=== PATIENT | female | born 1955 | race Caucasian/White ===

== ENCOUNTER → 2023-12-31 09:47 | Outpatient (REF) | payer MEDICARE, SELFPAY | LOC: RAD 09:47 | PROVIDERS: ATTENDING PHYSICIAN Internal Medicine Cardiovascular Disease; FAMILY PHYSICIAN Internal Medicine; REFERRING PHYSICIAN Internal Medicine Cardiovascular Disease | DX: I48.0 Paroxysmal atrial fibrillation (principal) | CPT/HCPCS: 75572; Q9967 ==

== ENCOUNTER → 2025-01-13 10:30 | Outpatient (REF) | payer MEDICARE, SELFPAY ==
[2025-01-13 11:41] LABS: Hematocrit 41.1 % (37.0-47.0); Hemoglobin 14.0 g/dL (12.0-16.0); Mean Corp Hgb Conc. 34.1 g/dL (33.0-37.0); Mean Corpuscular Volume 89.5 fL (81.0-99.0); Nucleated Red Blood Cells % 0 %; Platelet Count 301 10^3/uL (130-400); Red Cell Dist. Width 12.4 % (11.5-14.5)
[2025-01-13 11:45] LABS: INR 1.40; PT 17.4 Sec (11.4-14.6)
[2025-01-13 12:08] LABS: ALT (SGPT) 16 U/L (0-35); AST (SGOT) 20 U/L (14-36); Albumin 4.6 g/dl (3.5-5.0); Alkaline Phosphatase 76 U/L (38-126); Blood Urea Nitrogen 20 mg/dl (7-17); Calcium 9.4 mg/dl (8.4-10.2); Carbon Dioxide 27 mmol/L (22-30); Chloride 107 mmol/L (98-107); Glucose 88 mg/dl (70-99); Magnesium 2.0 mg/dl (1.6-2.3); Potassium 4.5 mmol/L (3.5-5.1); Sodium 142 mmol/L (135-145); Total Protein 7.4 g/dl (6.3-8.2); eGFR > 60.00
== END ==
LOC: SDSPAT 10:30
PROVIDERS: ATTENDING PHYSICIAN Internal Medicine Cardiovascular Disease; FAMILY PHYSICIAN Internal Medicine; OTHER PHYSICIAN Internal Medicine Cardiovascular Disease
DX: I48.0 Paroxysmal atrial fibrillation (principal)
CPT/HCPCS: 36415; 80053; 83735; 85025; 85610; 86850; 86900; 86901; 93005

== ENCOUNTER 2025-01-29 07:43 | Day surgery (SDC) | payer MEDICARE, SELFPAY ==
[2025-01-13 11:14] VITALS: BMI 30.4
[2025-01-29] VITALS (10 sets, daily range): BP systolic 120–156; BP diastolic 66–83; BMI 29.9
--- NOTE | 2025-01-29 11:40 | ITS.CL.ABL ---
[employer] - Ablation
Ablation
Procedure Report:
ELECTROPHYSIOLOGY ABLATION STUDY
DATE:: January 29, 2025�����������������������������REFERRING: Dr. Elena
INDICATION: Paroxysmal supraventricular tachycardia in the form of atrial fibrillation.��As above
HISTORY: See H and P.��As above
ANTIARRHYTHMIC DRUG: Discussed class I class III antiarrhythmic drug and the patient opted for pulmonary vein isolation
PRE-PROCEDURE ANA: No intracardiac thrombus
PRESENTING RHYTHM: Sinus rhythm with frequent APD's couplets and short runs of atrial fibrillation which were activation mapped to the left inferior pulmonary vein as well as a focal atrial tachycardia from the posterior wall outside the left
inferior pulmonary vein
'TIME-OUT':��called and confirmed.
SEDATION/ANESTHESIA:��provided via the anesthesia department using general anesthesia (LMA).
INTRAVENOUS/ARTERIAL ACCESS:
Right femoral venous - 10 Fr, 8Fr
Left femoral venous - 8 Fr, 6 Fr
Ultrasound guidance for bilateral femoral vein access was utilized by me to obtain access with demonstration of normal anatomy
CHADS-VASC Score:
HAS-Bled Score
PROCEDURE:
1.��A decapolar CS catheter was placed within the CS for mapping and pacing.��This was also used as the reference catheter for the 3-D map. Pulmonary vein and nonpulmonary vein triggers for atrial fibrillation were noted as below.
2. The intracardiac ultrasound catheter was positioned in the RA to identify the FO for targeting of transseptal puncture, assist��in identification of the pulmonary vein ostia, monitoring pre and post ablation pulmonary vein flow velocities,
monitoring for 'bubble' formation during RF application as a sign of thermal injury,��and to monitor for pericardial effusion during mapping and ablation procedure.���Left atrial size, LV ejection fraction, and pulmonary vein flows were monitored
pre and post ablation procedure. The other valves were inspected and found to be free of significant regurgitation or stenosis.
3.��Half of the calculated heparin bolus was administered prior to the first transeptal puncture.��Transseptal puncture was performed to diagnose RA and LA pressure so that safety of LA mapping and ablation could be further assessed, and to access
the left atrium and pulmonary veins for mapping and ablation.��This entailed advancing an 16.8 Persian sheath, RF wire with dilator into the superior vena cava and withdrawing both (monitoring intracardiac ultrasound, fluoroscopy and tip pressure)
with the tip oriented toward the atrial septum.��The fossa ovalis was engaged (indicated by sudden displacement of the sheath tip as well as tenting of the fossa seen on intracardiac ultrasound).��Left atrial access required a pass with the
Brockenbrough needle extended.��Left atrial catheter position was confirmed by pressure monitoring (RA mean pressure 8 mm Hg and LA mean pressure 12 mm Hg), LA saturation (99%),��as well as fluoroscopy.��The sheath was advanced over the dilator and
positioned in the left atrium.��.��The remainder of the calculated heparin bolus was administered and heparin was
infused to maintain ACT at 300 -350 seconds throughout the case.
4.��RA pacing was performed via the proximal decapolar poles and LA pacing was performed via the distal decapolr poles.
5. A quadrapolar catheter was first positioned at the His position for His Bundle recording which was tagged via the 3-D Navex sytem, and then passed to the RVA for RV pacing and recording.
6. The ablation catheter was positioned through one of the transeptal seaths and a 20 pole ring mapping catheter was positioned through the second seath into the LA and then the ostia of the LIPV, LSPV, RSPV and the RIPV.��
7.��Next, a 3-D map was created using Navex.���A 3-D reconstructed CT image was compared to the 3-D Navex map to assist in anatomic interpretation, mapping and ablation.��The CT image and the NavX image were fused.
8. There were pulmonary vein and nonpulmonary vein triggers for atrial fibrillation. There was a left inferior pulmonary vein APD which periodically degenerated into atrial fibrillation after couplets and triplets. Activation was approximately
100 ms precoronary sinus. There was a separate focal atrial tachycardia from the posterior wall outside the left inferior pulmonary vein which is approximately 110 ms precoronary sinus activation which also degenerated into short bursts of atrial
fibrillation. The first trigger was addressed by isolating the left inferior pulmonary vein and the second atrial tachycardia trigger was targeted in flower pose. A total of 52 lesions were given to the pulmonary veins and the roof posterior wall
and floor of the left atrium. Specific lesions in flower pose were given to target the patient's focal atrial tachycardia from the posterior wall. The pulmonary veins were targeted with all of and basket pose. Beyond the focal atrial tachycardia
the remainder of the roof posterior wall and floor was addressed in flower pose.
9. Normal sinus node and AV node function noted.
TOTAL FLOURO TIME: 12.1 minutes 123 mGy
TOTAL RF DURATION: 0 minutes
REVERSAL OF HEPARIN: 40 mg of protamine, slow IV administration
COMPLICATIONS:
None
Intracardiac US shows no pericardial effusion post ablation.
SUMMARY:��
Complex left atrial mapping and ablation.
Left inferior pulmonary vein APD trigger for atrial fibrillation. Focal atrial tachycardia from the posterior wall outside the left inferior pulmonary vein which also triggered atrial fibrillation. With isolation of the left inferior pulmonary
vein and is focal area in the posterior wall there was no further atrial fibrillation or APD's noted. We then performed pulmonary vein isolation and isolation of the roof posterior wall and floor of the left atrium rendering the veins in the
posterior wall electrically silent.
RECOMMENDATIONS:
1. Ambulate in 4 hours
2. Resume anticoagulation
3.��Consider same-day discharge
4.��Outpatient follow-up with Dr. Elena
Copy to: Dr. Elena at [facility]
[2025-01-29 12:05] LABS: ACT-LR - POC > 397 Seconds (116-155)
--- NOTE | 2025-01-29 16:05 | W.PN.UPDATE ---
Update Note
Progress Note Update
69 yo WF s/p PVI (Same day) She denies cp, sob, maldonado diet, voiding, EKG SR, b/l groins c/d/i, soft. She will resume Xarelto tonight. Activity restrictions reviewed. She will f/u Dr. Perez in 3 mo. She is for d/c home after 430p if groin stable.
== END 2025-01-29 16:35 | disposition home or self-care (01) ==
LOC: CATH 07:43
PROVIDERS: ATTENDING PHYSICIAN Internal Medicine Cardiovascular Disease; FAMILY PHYSICIAN Internal Medicine; OTHER PHYSICIAN Internal Medicine Cardiovascular Disease
DX: I48.0 Paroxysmal atrial fibrillation (principal); I47.19 Other supraventricular tachycardia; I49.5 Sick sinus syndrome; G43.909 Migraine, unspecified, not intractable, without status migrainosus; K22.0 Achalasia of cardia; G47.33 Obstructive sleep apnea (adult) (pediatric); E03.9 Hypothyroidism, unspecified; I10 Essential (primary) hypertension; Z79.01 Long term (current) use of anticoagulants; Z79.899 Other long term (current) drug therapy; Z79.890 Hormone replacement therapy; Z88.0 Allergy status to penicillin; Z88.2 Allergy status to sulfonamides; Z88.1 Allergy status to other antibiotic agents; Z98.890 Other specified postprocedural states; I44.0 Atrioventricular block, first degree
CPT/HCPCS: C1732; C1894; C1730; C1769; C1892; C1759; 85347; 86900; 86901; 93005; 93656; 93657; C1733; C1766